=== PATIENT | female | born 1970 | race Caucasian/White ===

== ENCOUNTER 2022-10-08 09:31 | Outpatient (CLI) | payer OTHER | END 2022-10-08 09:32 | disposition home or self-care (01) | LOC: ULT 09:31 | PROVIDERS: ATTEND Family Medicine | DX: R10.11 Right upper quadrant pain (principal); K83.8 Other specified diseases of biliary tract; K82.8 Other specified diseases of gallbladder | CPT/HCPCS: 76705 ==